=== PATIENT | female | born 1995 | race Caucasian/White ===

== ENCOUNTER 2017-07-19 16:25 | Outpatient (CLI) | payer BC | END 2017-07-19 16:26 | disposition home or self-care (01) | LOC: BICRAD 16:25 | PROVIDERS: ATTEND Family Medicine | DX: M79.671 Pain in right foot (principal) ==

== ENCOUNTER 2023-05-25 08:55 | Outpatient (CLI) | payer BC | END 2023-05-25 08:56 | disposition home or self-care (01) | LOC: DTY/OP 08:55 | PROVIDERS: ATTEND Specialist | DX: E66.9 Obesity, unspecified (principal) | CPT/HCPCS: 97802 ==

== ENCOUNTER 2024-03-11 10:48 | Outpatient (CLI) | payer BC | END 2024-03-11 10:49 | disposition home or self-care (01) | LOC: SCSRAD 10:48 | PROVIDERS: ATTEND Nurse Practitioner Family | DX: R05.1 Acute cough (principal); J18.9 Pneumonia, unspecified organism | CPT/HCPCS: 71046 ==

== ENCOUNTER 2024-03-21 14:22 | Outpatient (CLI) | payer BC | END 2024-03-21 14:23 | disposition home or self-care (01) | LOC: SCSRAD 14:22 | PROVIDERS: ATTEND Nurse Practitioner Family | DX: J18.9 Pneumonia, unspecified organism (principal) | CPT/HCPCS: 71046 ==